=== PATIENT | female | born 1980 | race Caucasian/White ===

== ENCOUNTER 2024-04-21 08:29 | Outpatient (AMB) | payer OTHER, SELFPAY ==
[2024-04-21 08:00] VITALS: BP 102/70; PULSE 60; RESP 12; BMI 23.0
--- NOTE | 2024-04-21 08:00 | A.OFFPC_ITS ---
Vital Signs 04/21/24 08:00 Height 5 ft 3 in Weight 130 lb BMI 23.0 BP 102/70 Blood Pressure Location Rt brachial Position Sitting Respiration 12 Pulse 60 Pulse Source Pulse Oximeter Intake Visit Reasons: npv (GET INFO) Tap Builder Required: No Memorandum Statement Clerk: Not Required per policy Is last menstrual period known: Yes Last menstrual period: 04/14/24 Post menopausal: No Patient : No Allergies No Known Allergies Allergy (Verified 04/21/24 08:09) Dental Screening Did you have a dental visit in the last 12 months?: Yes Did you have a dental problem in the last 6 months where you did not have access to dental care?: No Was dental information given to patient?: Patient has dentist HPI npv (GET INFO) HPI Details Patient is a 44-year-old female with a significant past medical history of Graves disease s/p radioiodine therapy, secondary hypothyroidism, vitamin-D deficiency, vitamin B12 deficiency, and an abnormal echo. CV: Blood pressure today is 102/70. In 2020 she had an echo for a murmur and did have an abnormal echo at that time. It was recommended that she have a cardiac MRI but she never got this done. She states that she just ignored everything and figure that her results were a little abnormal because she had had recurrent COVID infections. She does not have any chest pain or shortness on breath. At the time she was having palpitations. She does have fatigue but states that she believes this is life induced. No leg swelling. General: She does feel tired and states that at times she thinks it is related to her thyroid or it could even be related to her life. She recently switched jobs and is feeling a little bit better but just started at the new place last week. 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 She does not take any vitamins and does wonder if this could also be related to vitamin deficiency or just hormone changes as she gets older. She states that she has gained more weight around her mid section and attributes this to possibly being perimenopause. She is very active and generally avoids dairy and gluten. Endo: On [place] thyroid 90 mg. Did not tolerate levothyroxine/Synthroid. She states that it never made her feel as well as the [place] Thyroid. She was placed on this after her radioiodine therapy in 2003. She says that she is aware of the risks associated with desiccated thyroid and that it was harder to manage. Her last TSH was in 2021. Front Services Agent: Up-to-date in follows with gynecology. Has an appointment scheduled in June. She wonders if she is perimenopausal because her periods have changed where she only has a 3 day cycle but she is now also experiencing hot flashes. She states out of nowhere she will be very hot and need to take off some items of clothing. This also happens frequently at night. She denies any drenching night sweats or swelling in any lymph nodes. GI: She states over the last year she has developed some abdominal bloating even without eating. She says it does seem a little weird because her diet is very clean. She generally cooks most of her meals at home in his very conscientious of her food that she is eating. She denies any GERD symptoms or increased gas. She states that her stools have changed in our sometimes related to the abdominal bloating. She states her told her that she should get a colonoscopy. She has no family history of colon cancer. No blood in her stool. She thinks that this stool changes probably dietary. If she goes out to eat she will get constipated for a couple days even if she order something ?healthy ?. When she cooks for herself her stools are mostly normal. Sometimes she will get an occasional bout of diarrhea but states that it is usually self-limiting. Mammo: Up-to-date [facility] Medical History (Updated 04/21/24 @ 09:05 by Danisha Ferreira PA-C) Abnormal echocardiogram Graves disease Female Reproductive History Menstrual Date of last menstrual period: 04/14/24 Questionnaire PHQ-9 Over the last 2 weeks, how often have you been bothered by any of the following problems? 1. Little interest or pleasure in doing things: not at all 2. Feeling down, depressed, or hopeless: not at all 3. Trouble falling or staying asleep, or sleeping too much: not at all 4. Feeling tired or having little energy: not at all 5. Poor appetite or overeating: not at all 6. Feeling bad about yourself - or that you are a failure or have let yourself or your family down: not at all 7. Trouble concentrating on things, such as reading the newspaper or watching television: not at all 8. Moving or speaking so slowly that other people could have noticed. Or the opposite - being so fidgety or restless that you have been moving around a lot more than usual: not at all 9. Thoughts that you would be better off or of hurting yourself in some way: not at all Total score: 0 Depression Screening Interpretation: Negative Depression Screening Done: Yes 22744 - PHQ-9 Billing: Yes Source: Developed by Drs. Juan Daniel Blum, Theresa Allen, Azeem Godfrey and colleagues, with an educational janes from [employer]. Thrive Questionnaire I am a: Patient What is your living situation today?: I have a steady place to live Within the past 12 months, did the food you bought not last and you didn't have the money to get more?: Never true Within the past 12 months, did you worry whether your food would run out before you got money to buy more?: Never true Do you have trouble paying for medicines?: No Do you have trouble getting transportation to medical appointments?: No Do you have trouble paying your heating and electricity bill?: No Do you have trouble taking care of your child, family member or friend?: No Do you have trouble with day-to-day activities such as bathing, preparing meals, shopping, managing finances, etc.?: No Are you currently unemployed and looking for a job?: No Are you interested in more education?: No Please select the resources that you would like help with: None Currently or been in a relationship where the following occur: No concerns reported THRIVE Score: 0 AUDIT C Alcohol Use Questionnaire (AUDIT-C) 1. How often do you have a drink containing alcohol?: 2-3 times a week 2. How many drinks containing alcohol do you have on a typical day when you are drinking?: 1 or 2 3. How often do you have six or more drinks on one occasion?: Never Total Score: 3 Score Reviewed/Action Taken: Yes YARELY-7 AMB Questionnaire YARELY-7 Feeling nervous, anxious, or on edge: 0 = Not at all Not being able to stop or control worryin = Not at all Worrying too much about different things: 0 = Not at all Trouble relaxin = Not at all Being so restless that it is hard to sit still: 0 = Not at all Becoming easily annoyed or irritable: 0 = Not at all Feeling afraid as if something awful might happen: 0 = Not at all Total YARELY-7 score (0-4 normal; 5-9 mild; 10-14 moderate; 15-21 severe): 0 Source: Developed by Drs. Juan Daniel Blum, Theresa Allen, Azeem Godfrey and colleagues, with an educational janes from [employer]. YARELY-7 Assessment Billing YARELY-7 Assessment Tool: YARELY-7 Assessment 75179 Physical exam (Primary Care) Depression Screening Interpretation: Negative Currently or been in a relationship where the following occur: No concerns reported Const Orientation/consciousness: patient oriented x3 HENMT Ears: hearing grossly normal bilaterally and TM's normal bilaterally General nose exam: No nasal polyps present Face and sinus: Yes sinuses nontender Mouth: Normal oral and palatal mucosa present Eyes Pupils: Equal, round and reactive pupils present EOM: EOMs intact bilaterally Neck Neck: Yes full ROM and Yes no lymphadenopathy Thyroid: solitary palpable nodule on the right Lymphatic: no lymphadenopathy noted Chest Chest palpation & inspection: normal inspection of the chest Resp Auscultation: clear to auscultation bilaterally Cardio Rate: regular rate Rhythm: regular rhythm Heart sounds: S1 normal heart sound present and S2 normal heart sound present Peripheral pulses: Peripheral pulses 2+ throughout GI Other: Soft, nontender Auscultation: normal bowel sounds Rectal Exam - Female: deferred General: Yes no CVA tenderness Back/Spine/Pelvis Other: Nontender Back: no CVA tenderness Skin General skin exam: no rashes or lesions noted Neuro General: patient oriented x3, gait normal, CN's II-XI intact bilaterally and deep tendon reflexes 2+ bilaterally Cranial nerves: Yes Equal, round and reactive pupils present Motor exam (neuro): 5/5 motor strength present throughout Sensory Exam: double simultaneous stimulation for sensation normal Coordination: [id number] test normal and Romberg test negative Extrem General: Yes normal to inspection and Yes full ROM Psych Affect: normal affect Attitude: cooperative Thought process: Normal thought process present Thought content: Normal thought content present Insight: Good insight present (Psych) Judgement: Good judgement present (Psych) Coding Level of Care Code Est Pt Level 3 (98132) Est Pt Prev Care 40-64y(05474) Diagnoses Routine general medical examination at a health care facility Z00.00 Hypothyroidism following radioiodine therapy E89.0 Thyroid nodule E04.1 Abnormal echocardiogram R93.1 Abdominal bloating R14.0 Change in stool R19.5 Hot flashes R23.2 Fatigue R53.83 Vitamin D deficiency E55.9 Additional Codes PHQ-9 - 04550 - PHQ-9 Billing: Yes ([id number]) YARELY-7 Assessment Billing - YARELY-7 Assessment Tool: YARELY-7 Assessment 38773 ([id number]) Assessment & Plan Assessment & Plan (1) Routine general medical examination at a [facility] care facility: Code(s): Z00.00 - Encounter for general adult medical examination without abnormal findings Plan: Health maintenance reviewed Labs ordered today (2) Hypothyroidism following radioiodine therapy: Code(s): E89.0 - Postprocedural hypothyroidism Category: Medical Plan: on armour 90 mg. We will check TSH. (3) Thyroid nodule: Code(s): E04.1 - Nontoxic single thyroid nodule Category: Medical Plan: Noted on exam today. Ultrasound ordered (4) Abnormal echocardiogram: Code(s): R93.1 - Abnormal findings on diagnostic imaging of heart and coronary circulation Category: Medical Plan: Echo ordered. We will hold off on cardiac MRI as she wants to wait on this and see a 2nd opinion on an echo (5) Abdominal bloating: Code(s): R14.0 - Abdominal distension (gaseous) Category: Medical Plan: Abdominal ultrasound ordered. Labs ordered today. Abdominal exam is benign. (6) Change in stool: Code(s): R19.5 - Other fecal abnormalities Category: Medical Plan: Referral to GI. As above (7) Hot flashes: Code(s): R23.2 - [place] Category: Medical Plan: We will check hormones. Has upcoming appointment with stage producer. Discussed could be related to her thyroid as well if poorly controlled. (8) Fatigue: Code(s): R53.83 - Other fatigue Category: Medical Plan: Labs ordered today. She would like her vitamins checked. We will follow up pending test results. (9) Vitamin D deficiency: Code(s): E55.9 - Vitamin D deficiency, unspecified Category: Medical Plan: not currently on supplement. will check labs Plan Would like refill on Latisse for eyelash growth. Understands insurance will not cover this. Would like refill on tretinoin 0 0.025%. Uses this for fine lines and hyperpigmentation. Again, understands that insurance will cover this. She is aware of the risks and benefits of both of these medications and potential adverse effects. Orders: Orders Endomysial IgA rflx Titer Today E89.0 - Postprocedural hypothyroidism, R14.0 - Abdominal distension (gaseous), R19.5 - Other fecal abnormalities, R23.2 - [place], R53.83 - Other fatigue, R63.5 - Abnormal weight gain, R93.1 - Abnormal findings on diagnostic imaging of heart and coronary circulation, Z00.00 - Encounter for general adult medical examination without abnormal findings Immunoglobulin A Today E89.0 - Postprocedural hypothyroidism, R14.0 - Abdominal distension (gaseous), R19.5 - Other fecal abnormalities, R23.2 - [place], R53.83 - Other fatigue, R63.5 - Abnormal weight gain, R93.1 - Abnormal findings on diagnostic imaging of heart and coronary circulation, Z00.00 - Encounter for general adult medical examination without abnormal findings Basic Metabolic Panel Today E89.0 - Postprocedural hypothyroidism, R14.0 - Abdominal distension (gaseous), R19.5 - Other fecal abnormalities, R23.2 - [place], R53.83 - Other fatigue, R63.5 - Abnormal weight gain, R93.1 - Abnormal findings on diagnostic imaging of heart and coronary circulation, Z00.00 - Encounter for general adult medical examination without abnormal findings Vitamin B12 and Folate Today E89.0 - Postprocedural hypothyroidism, R14.0 - Abdominal distension (gaseous), R19.5 - Other fecal abnormalities, R23.2 - [place], R53.83 - Other fatigue, R63.5 - Abnormal weight gain, R93.1 - Abnormal findings on diagnostic imaging of heart and coronary circulation, Z00.00 - Encounter for general adult medical examination without abnormal findings Ferritin Today E89.0 - Postprocedural hypothyroidism, R14.0 - Abdominal distension (gaseous), R19.5 - Other fecal abnormalities, R23.2 - [place], R53.83 - Other fatigue, R63.5 - Abnormal weight gain, R93.1 - Abnormal findings on diagnostic imaging of heart and coronary circulation, Z00.00 - Encounter for general adult medical examination without abnormal findings Vitamin D 25-OH Total Today E89.0 - Postprocedural hypothyroidism, R14.0 - Abdominal distension (gaseous), R19.5 - Other fecal abnormalities, R23.2 - [place], R53.83 - Other fatigue, R63.5 - Abnormal weight gain, R93.1 - Abnormal findings on diagnostic imaging of heart and coronary circulation, Z00.00 - Encounter for general adult medical examination without abnormal findings Vitamin B1 Today E89.0 - Postprocedural hypothyroidism, R14.0 - Abdominal distension (gaseous), R19.5 - Other fecal abnormalities, R23.2 - [place], R53.83 - Other fatigue, R63.5 - Abnormal weight gain, R93.1 - Abnormal findings on diagnostic imaging of heart and coronary circulation, Z00.00 - Encounter for general adult medical examination without abnormal findings Estrad Free (Tot Ultra + Free) Today E89.0 - Postprocedural hypothyroidism, R14.0 - Abdominal distension (gaseous), R19.5 - Other fecal abnormalities, R23.2 - [place], R53.83 - Other fatigue, R63.5 - Abnormal weight gain, R93.1 - A bnormal findings on diagnostic imaging of heart and coronary circulation, Z00.00 - Encounter for general adult medical examination without abnormal findings Estradiol Ultra Sensitive Today E89.0 - Postprocedural hypothyroidism, R14.0 - Abdominal distension (gaseous), R19.5 - Other fecal abnormalities, R23.2 - [place], R53.83 - Other fatigue, R63.5 - Abnormal weight gain, R93.1 - Abnormal findings on diagnostic imaging of heart and coronary circulation, Z00.00 - Encounter for general adult medical examination without abnormal findings Cortisol Random Today E89.0 - Postprocedural hypothyroidism, R14.0 - Abdominal distension (gaseous), R19.5 - Other fecal abnormalities, R23.2 - [place], R53.83 - Other fatigue, R63.5 - Abnormal weight gain, R93.1 - Abnormal findings on diagnostic imaging of heart and coronary circulation, Z00.00 - Encounter for general adult medical examination without abnormal findings Vitamin A Today E89.0 - Postprocedural hypothyroidism, R14.0 - Abdominal distension (gaseous), R19.5 - Other fecal abnormalities, R23.2 - [place], R53.83 - Other fatigue, R63.5 - Abnormal weight gain, R93.1 - Abnormal findings on diagnostic imaging of heart and coronary circulation, Z00.00 - Encounter for general adult medical examination without abnormal findings Transglutaminase Ab IgG Today E89.0 - Postprocedural hypothyroidism, R14.0 - Abdominal distension (gaseous), R19.5 - Other fecal abnormalities, R23.2 - [place], R53.83 - Other fatigue, R63.5 - Abnormal weight gain, R93.1 - Abnormal findings on diagnostic imaging of heart and coronary circulation, Z00.00 - Encounter for general adult medical examination without abnormal findings Complete Blood Count Auto Diff Today E89.0 - Postprocedural hypothyroidism, R14.0 - Abdominal distension (gaseous), R19.5 - Other fecal abnormalities, R23.2 - [place], R53.83 - Other fatigue, R63.5 - Abnormal weight gain, R93.1 - Abnormal findings on diagnostic imaging of heart and coronary circulation, Z00.00 - Encounter for general adult medical examination without abnormal findings Liver Panel Today E89.0 - Postprocedural hypothyroidism, R14.0 - Abdominal distension (gaseous), R19.5 - Other fecal abnormalities, R23.2 - [place], R53.83 - Other fatigue, R63.5 - Abnormal weight gain, R93.1 - Abnormal findings on diagnostic imaging of heart and coronary circulation, Z00.00 - Encounter for general adult medical examination without abnormal findings Lyme IgG/IgM w/reflex to WB Today E89.0 - Postprocedural hypothyroidism, R14.0 - Abdominal distension (gaseous), R19.5 - Other fecal abnormalities, R23.2 - [place], R53.83 - Other fatigue, R63.5 - Abnormal weight gain, R93.1 - Abnormal findings on diagnostic imaging of heart and coronary circulation, Z00.00 - Encounter for general adult medical examination without abnormal findings TSH reflex Free T4 Today E89.0 - Postprocedural hypothyroidism, R14.0 - Abdominal distension (gaseous), R19.5 - Other fecal abnormalities, R23.2 - [place], R53.83 - Other fatigue, R63.5 - Abnormal weight gain, R93.1 - Abnormal findings on diagnostic imaging of heart and coronary circulation, Z00.00 - Encounter for general adult medical examination without abnormal findings Lipid Panel Today E89.0 - Postprocedural hypothyroidism, R14.0 - Abdominal distension (gaseous), R19.5 - Other fecal abnormalities, R23.2 - [place], R53.83 - Other fatigue, R63.5 - Abnormal weight gain, R93.1 - Abnormal findings on diagnostic imaging of heart and coronary circulation, Z00.00 - Encounter for general adult medical examination without abnormal findings Magnesium Today E89.0 - Postprocedural hypothyroidism, R14.0 - Abdominal distension (gaseous), R19.5 - Other fecal abnormalities, R23.2 - [place], R53.83 - Other fatigue, R63.5 - Abnormal weight gain, R93.1 - Abnormal findings on diagnostic imaging of heart and coronary circulation, Z00.00 - Encounter for general adult medical examination without abnormal findings IRON PROFILE Today E89.0 - Postprocedural hypothyroidism, R14.0 - Abdominal distension (gaseous), R19.5 - Other fecal abnormalities, R23.2 - [place], R53.83 - Other fatigue, R63.5 - Abnormal weight gain, R93.1 - Abnormal findings on diagnostic imaging of heart and coronary circulation, Z00.00 - Encounter for general adult medical examination without abnormal findings Zinc Today E89.0 - Postprocedural hypothyroidism, R14.0 - Abdominal distension (gaseous), R19.5 - Other fecal abnormalities, R23.2 - [place], R53.83 - Other fatigue, R63.5 - Abnormal weight gain, R93.1 - Abnormal findings on diagnostic imaging of heart and coronary circulation, Z00.00 - Encounter for general adult medical examination without abnormal findings Testosterone, Free/Total Today E89.0 - Postprocedural hypothyroidism, R14.0 - Abdominal distension (gaseous), R19.5 - Other fecal abnormalities, R23.2 - [place], R53.83 - Other fatigue, R63.5 - Abnormal weight gain, R93.1 - Abnormal findings on diagnostic imaging of heart and coronary circulation, Z00.00 - Encounter for general adult medical examination without abnormal findings Lutenizing Hormone Today E89.0 - Postprocedural hypothyroidism, R14.0 - Abdominal distension (gaseous), R19.5 - Other fecal abnormalities, R23.2 - [place], R53.83 - Other fatigue, R63.5 - Abnormal weight gain, R93.1 - Abnormal findings on diagnostic imaging of heart and coronary circulation, Z00.00 - Encounter for general adult medical examination without abnormal findings Follicle Stimulating Hormone Today E89.0 - Postprocedural hypothyroidism, R14.0 - Abdominal distension (gaseous), R19.5 - Other fecal abnormalities, R23.2 - [place], R53.83 - Other fatigue, R63.5 - Abnormal weight gain, R93.1 - Abnormal findings on diagnostic imaging of heart and coronary circulation, Z00.00 - Encounter for general adult medical examination without abnormal findings CA echo transthoracic complete Today R93.1 - Abnormal findings on diagnostic imaging of heart and coronary circulation US soft tiss head and/or neck Today E04.1 - Nontoxic single thyroid nodule US abdomen complete Today R14.0 - Abdominal distension (gaseous), R19.5 - Other fecal abnormalities Referrals Gastroenterology Referral R14.0 - Abdominal distension (gaseous), R19.5 - Other fecal abnormalities Medications: New bimatoprost 0.03% (Latisse) 1 appl topical BEDTIME 5 mL 2RF tretinoin 0.025% 1 appl topical BEDTIME 45 grams 3RF hydrocortisone 2.5% 1 appl topical BID 14 days PRN 30 grams 3RF skin irritation
== END 2024-04-21 08:30 | disposition home or self-care (01) ==
LOC: HO.HMCFM 08:29
PROVIDERS: PCP Physician Assistant; Visit Provider Physician Assistant
DX: Z00.00 Encounter for general adult medical examination without abnormal findings (principal); E04.1 Nontoxic single thyroid nodule; E89.0 Postprocedural hypothyroidism; R14.0 Abdominal distension (gaseous); R93.1 Abnormal findings on diagnostic imaging of heart and coronary circulation; R19.5 Other fecal abnormalities; R23.2 Flushing; R53.83 Other fatigue; E55.9 Vitamin D deficiency, unspecified

== ENCOUNTER → 2024-04-21 08:29 | Outpatient (BNVA) | payer SELFPAY | PROVIDERS: PCP Physician Assistant; Visit Provider Physician Assistant | DX: Z00.00 Encounter for general adult medical examination without abnormal findings (principal); E89.0 Postprocedural hypothyroidism; E04.1 Nontoxic single thyroid nodule; R93.1 Abnormal findings on diagnostic imaging of heart and coronary circulation; R14.0 Abdominal distension (gaseous); R19.5 Other fecal abnormalities; R23.2 Flushing; R53.83 Other fatigue; E55.9 Vitamin D deficiency, unspecified | CPT/HCPCS: 96127 ==

== ENCOUNTER 2024-04-21 08:47 | Outpatient (REF) | payer OTHER, SELFPAY ==
[2024-04-21 10:31] LABS: MANUAL DIFF FLAG NO
[2024-04-21 10:43] LABS: Basophils Percent Auto 0.8 % (0-2); Eosinophils Absolute Auto 0.1 X10*3/uL (0.0-0.4); Eosinophils Percent Auto 1.3 % (0-4); Hematocrit 40.6 % (37.0-47.0); Hemoglobin 14.5 g/dl (12.0-16.0); Imm Gran Abs Auto 0.02 X10*3/uL (0.00-0.03); Imm Gran Pct Auto 0.5 % (0.0-0.4); Lymphocytes Absolute Auto 1.1 X10*3/uL (1.2-4.9); Mean Corpuscular HGB Conc 35.7 g/dl (31.0-35.0); Mean Corpuscular Hemoglobin 33.2 pg (27.0-33.0); Mean Corpuscular Volume 92.9 fL (80.0-98.0); Mean Platelet Volume 11.5 fL (9.4-12.3); Monocytes Absolute Auto 0.3 X10*3/uL (0.1-1.2); Monocytes Percent Auto 8.4 % (2-11); Neutrophils Absolute Auto 2.4 x10*3/uL (2.0-8.3); Platelet Count 240 X10*3/uL (160-400); Red Blood Count 4.37 X10*6/uL (4.20-5.50); Red Cell Distribution Width 11.9 % (11.0-16.0); White Blood Count 3.9 X10*3/uL (4.8-10.8)
[2024-04-21 11:18] LABS: Alanine Aminotransferase 21 U/L (0-31); Alkaline Phosphatase 55 U/L (39-117); Anion Gap 12 (12-20); Aspartate Amino Transferase 24 U/L (5-31); Bilirubin Direct 0.4 mg/dL (0.0-0.5); Bilirubin Total 1.2 mg/dL (0.0-1.0); Blood Urea Nitrogen 16 mg/dL (9-16); Calcium 9.9 mg/dL (8.4-10.2); Carbon Dioxide 26 mmol/L (22-29); Chloride 102 mmol/L (96-108); Cholesterol 247 mg/dL (<200); Estimated Glomerular Filt Rate > 60; Glucose Random 90 mg/dL (60-115); HDL Cholesterol 91 mg/dL (>40); Iron 196 mcg/dL (30-160); LDL Cholesterol Calculated 142 mg/dL (<100); Magnesium 2.3 mg/dL (1.6-2.6); Percent Iron Saturation 60 % (15-50); Potassium 4.1 mmol/L (3.3-5.1); Sodium 136 mmol/L (135-145); Total Iron Binding Capacity 324 mcg/dL (228-428); Total Protein 8.3 g/dL (6.5-8.0); Triglycerides 71 mg/dL (<150); Unsaturated Iron Binding 128 ug/dL
[2024-04-21 11:20] LABS: Ferritin 105 ng/mL (10-250); Vitamin D 25-OH Total 41.9 ng/mL (>30)
[2024-04-21 11:23] LABS: Cortisol Random 12.9 ug/dL
[2024-04-21 11:35] LABS: Vitamin B12 410 pg/mL (200-900)
[2024-04-21 12:48] LABS: Free T4 (Free Thyroxine) 0.69 ng/dL (0.71-1.85)
[2024-04-23 00:55] LABS: Immunoglobulin A 185 mg/dL (47-310)
[2024-04-23 02:33] LABS: Lyme Abs Screen <0.90 index
[2024-04-23 09:09] LABS: Follicle Stimulating Hormone 7.9 mIU/mL; Lutenizing Hormone 4.1 mIU/mL
[2024-04-23 19:43] LABS: Transglutaminase Ab IgG <1.0 U/mL
[2024-04-24 23:03] LABS: Endomysial IgA Antibody Negative (Negative)
[2024-04-26 12:38] LABS: Vitamin B1 7 nmol/L (8-30)
[2024-04-26 13:02] LABS: Vitamin A 65 mcg/dL (38-98)
[2024-04-26 17:43] LABS: Testosterone, Free 1.2 pg/mL (0.1-6.4); Testosterone, Total 14 ng/dL (2-45)
[2024-04-29 23:24] LABS: Estradiol Ultra Sensitive 49 pg/mL
[2024-05-09 03:19] LABS: Estradiol, Ultrasensitive 52 pg/mL
== END 2024-04-21 08:48 | disposition home or self-care (01) ==
LOC: HO.WFDLDS 08:47
PROVIDERS: Visit Provider Physician Assistant
DX: Z00.00 Encounter for general adult medical examination without abnormal findings (principal); R23.2 Flushing; R19.5 Other fecal abnormalities; R14.0 Abdominal distension (gaseous); R93.1 Abnormal findings on diagnostic imaging of heart and coronary circulation; E89.0 Postprocedural hypothyroidism; R53.83 Other fatigue; R63.5 Abnormal weight gain; E04.1 Nontoxic single thyroid nodule; E55.9 Vitamin D deficiency, unspecified
CPT/HCPCS: 36415; 80048; 80061; 80076; 82306; 82533; 82607; 82670; 82681; 82728; 82746; 82784; 83001; 83002; 83540; 83735; 84402; 84403; 84425; 84439; 84443; 84590; 85025; 86231; 86364; 86617; 86618

== ENCOUNTER 2024-12-03 08:30 | Outpatient (REF) | payer OTHER, SELFPAY ==
[2024-12-03 11:54] LABS: TSH reflex Free T4 1.01 uIU/mL (0.32-4.0)
[2024-12-03 14:07] LABS: MANUAL DIFF FLAG NO
[2024-12-03 14:18] LABS: Basophils Percent Auto 0.8 % (0-2); Eosinophils Percent Auto 0.5 % (0-4); Hematocrit 39.7 % (37.0-47.0); Hemoglobin 14.2 g/dl (12.0-16.0); Imm Gran Abs Auto 0.01 X10*3/uL (0.00-0.03); Imm Gran Pct Auto 0.3 % (0.0-0.4); Lymphocytes Absolute Auto 1.4 X10*3/uL (1.2-4.9); Lymphocytes Percent Auto 34.9 % (20-40); Mean Corpuscular HGB Conc 35.8 g/dl (31.0-35.0); Mean Corpuscular Hemoglobin 32.5 pg (27.0-33.0); Mean Corpuscular Volume 90.8 fL (80.0-98.0); Mean Platelet Volume 11.9 fL (9.4-12.3); Monocytes Absolute Auto 0.6 X10*3/uL (0.1-1.2); Monocytes Percent Auto 14.4 % (2-11); Neutrophils Absolute Auto 1.9 x10*3/uL (2.0-8.3); Neutrophils Percent Auto 49.1 % (45-73); Platelet Count 216 X10*3/uL (160-400); Red Blood Count 4.37 X10*6/uL (4.20-5.50)
[2024-12-03 14:35] LABS: Alanine Aminotransferase 23 U/L (0-31); Albumin Level 4.6 g/dL (3.5-5.0); Alkaline Phosphatase 59 U/L (39-117); Anion Gap 13 (12-20); Aspartate Amino Transferase 21 U/L (5-31); Bilirubin Total 1.2 mg/dL (0.0-1.0); Blood Urea Nitrogen 16 mg/dL (9-16); Calcium 9.3 mg/dL (8.4-10.2); Carbon Dioxide 24 mmol/L (22-29); Chloride 104 mmol/L (96-108); Cholesterol 200 mg/dL (<200); Estimated Glomerular Filt Rate > 60; Glucose Fasting 94 mg/dL (60-99); HDL Cholesterol 82 mg/dL (>40); LDL Cholesterol Calculated 107 mg/dL (<100); Potassium 4.5 mmol/L (3.3-5.1); Sodium 136 mmol/L (135-145); Total Protein 7.1 g/dL (6.5-8.0); Triglycerides 59 mg/dL (<150)
[2024-12-03 15:01] LABS: Folate 10.3 ng/mL (> or = 4.0); Vitamin B12 331 pg/mL (200-900)
== END 2024-12-03 08:31 | disposition home or self-care (01) ==
LOC: HO.WFDLDS 08:30
PROVIDERS: Visit Provider Physician Assistant
DX: E89.0 Postprocedural hypothyroidism (principal); R14.0 Abdominal distension (gaseous); R19.5 Other fecal abnormalities
CPT/HCPCS: 36415; 80053; 80061; 82607; 82746; 84443; 85025